=== PATIENT | female | born 1975 | race Caucasian/White ===

== ENCOUNTER 2017-06-06 09:24 | Inpatient (IN) | payer OTHER ==
[2017-06-06] MEDS ORDERED: LIDOCAINE 1%/EPI 30 ML INJ (11:09)
[2017-06-06] MEDS ORDERED: SURGIFOAM POWDER 1 GM KIT (11:09)
[2017-06-06] MEDS ORDERED: HEPARIN 1000 UNITS/ML 10 ML INJ (11:10)
[2017-06-06] MEDS ORDERED: CA CHLORIDE 10% 10 ML SYRINGE (11:11)
[2017-06-06] MEDS ORDERED: AL HYDROX/MG HYDROX/SIMETH 30 ML CUP PO (11:30)
[2017-06-06] MEDS ORDERED: LORAZEPAM 2 MG INJ IV (11:30)
[2017-06-06] MEDS ORDERED: ACETAMINOPHEN 325 MG TAB PO (11:30)
[2017-06-06] MEDS ORDERED: clonAZEPAM 0.5 MG TAB PO (11:30)
[2017-06-06] MEDS ORDERED: NALOXONE (0.4 MG/ML) INJ IV (11:30)
[2017-06-06] MEDS ORDERED: DIPHENHYDRAMINE 50 MG INJ IV ×2 (11:30→15:30)
[2017-06-06] MEDS ORDERED: ROCURONIUM 50 MG INJ (11:34)
[2017-06-06] MEDS ORDERED: SUCCINYLCHOLINE CHLORIDE 100 MG/5 ML SYG IV (11:34)
[2017-06-06] MEDS ORDERED: MEPERIDINE 100 MG INJ (11:34)
[2017-06-06] MEDS ORDERED: GLYCOPYRROLATE 0.4 MG INJ ×2 (11:34→14:58)
[2017-06-06] MEDS ORDERED: LIDOCAINE 2% (SDV) 5 ML INJ (11:34)
[2017-06-06] MEDS ORDERED: NEOSTIGMINE 3 MG/3 ML SYRINGE (11:34)
[2017-06-06] MEDS ORDERED: PROPOFOL 20 ML (11:34)
[2017-06-06 12:04] LABS: ADD MAN DIFF? NO
[2017-06-06 12:19] LABS: WHITE BLOOD COUNT 5.5 10^3/ul (4.8-10.8)
[2017-06-06 12:19] LABS: BASOPHILS % 0.2 % (0.0-2.0); EOSINOPHILS # 0.1 10^3/ul (0.0-0.5); EOSINOPHILS % 1.6 % (0.0-7.0); HEMATOCRIT 39.4 % (37.0-47.0); HEMOGLOBIN 13.9 g/dl (12.0-16.0); LYMPHOCYTES # 2.2 10^3/ul (0.8-2.9); LYMPHOCYTES % 39.4 % (15.0-51.0); MEAN CORPUSCULAR HEMOGLOBIN 33.2 pg (29.0-33.0); MEAN CORPUSCULAR HGB CONC 35.3 g/dl (32.0-37.0); MEAN PLATELET VOLUME 10.1 fl (7.4-10.4); MONOCYTE # 0.4 10^3/ul (0.3-0.9); MONOCYTES % 6.4 % (0.0-11.0); NEUTROPHIL # 2.9 10^3/ul (1.6-7.5); NEUTROPHILS % 52.2 % (39.0-77.0); PLATELET COUNT 204 10^3/UL (140-415); RED BLOOD COUNT 4.19 10^6/ul (4.20-5.40); RED CELL DISTRIBUTION WIDTH 12.3 % (11.5-14.5)
[2017-06-06 12:27] LABS: ANION GAP 18 (8-16); CARBON DIOXIDE 26 mmol/L (21-31); CHLORIDE 105 mmol/L (97-110); GLUCOSE 93 mg/dl (70-220)
[2017-06-06] MEDS: CEFAZOLIN 1 GM/50 ML (PMX) 50 ML IVPB ×2 (12:30→21:50)
[2017-06-06 12:35] LABS: BLOOD UREA NITROGEN 12 mg/dl (7-20); CALCIUM 9.9 mg/dl (8.4-10.2); POTASSIUM 4.4 mmol/L (3.5-5.1); SODIUM 145 mmol/L (135-144)
[2017-06-06] MEDS ORDERED: CEFAZOLIN 1 GM INJ ×3 (13:16→14:46)
[2017-06-06] MEDS ORDERED: EPHEDrine SULFATE 50 MG/5 ML SYG (13:16)
[2017-06-06] MEDS: CEFAZOLIN 1 GM INJ ×2 (13:24→14:52)
[2017-06-06] MEDS: GELATIN SIZE 100 SPONGE (13:25)
[2017-06-06] MEDS: THROMBIN 5000 UNIT VIAL (13:25)
[2017-06-06] MEDS: PANTOPRAZOLE (EC) 40 MG TAB PO (14:00)
[2017-06-06] MEDS ORDERED: GELATIN SIZE 100 SPONGE (14:48)
[2017-06-06] MEDS ORDERED: THROMBIN 5000 UNIT VIAL (14:50)
[2017-06-06] MEDS ORDERED: FENTAnyl 50 MCG/ML VIAL IV ×3 (15:30)
[2017-06-06] MEDS ORDERED: METOCLOPRAMIDE 10 MG INJ IV (15:30)
[2017-06-06] MEDS ORDERED: OXYCODONE/ACETAMINOPHEN (5/325) TAB PO ×2 (15:30)
[2017-06-06] MEDS ORDERED: LABETALOL HCL 20MG INJ IV (15:30)
[2017-06-06] MEDS ORDERED: HYDROmorphONE (0.2 MG/ML) 10ML SYG IV ×3 (15:30)
[2017-06-06] MEDS ORDERED: ONDANSETRON 4 MG INJ IV (15:30)
[2017-06-06] MEDS ORDERED: MIDAZOLAM 1 MG/ML 2 ML INJ IV (15:30)
[2017-06-06] MEDS ORDERED: MEPERIDINE 25 MG INJ IV (15:30)
[2017-06-06] MEDS ORDERED: EPHEDrine SULFATE 50 MG/5 ML SYG IV (15:30)
[2017-06-06] MEDS ORDERED: hydrALAzine 20 MG INJ IV (15:30)
[2017-06-06] MEDS: HYDROmorphONE (0.2 MG/ML) 10ML SYG IV ×3 (15:34→16:22)
[2017-06-06] MEDS: ONDANSETRON 4 MG INJ IV (17:16)
[2017-06-06] MEDS: SOD CHLORIDE 0.45% 1,000 ML IV (17:45)
[2017-06-06] MEDS: HYDROmorphONE 0.5 MG/0.5 ML SYG IV (18:02)
[2017-06-06] MEDS: HYDROCODONE/APAP (5/325) TAB PO (20:16)
[2017-06-06] MEDS: DOCUSATE SODIUM 100 MG CAP PO (21:00)
[2017-06-06] MEDS: PROCHLORPERAZINE 10 MG INJ IV (21:56)
[2017-06-07] MEDS: CYCLOBENZAPRINE 10 MG TAB PO ×2 (02:21→13:19)
[2017-06-07] MEDS: CEFAZOLIN 1 GM/50 ML (PMX) 50 ML IVPB ×2 (05:32→13:34)
[2017-06-07] MEDS: PANTOPRAZOLE (EC) 40 MG TAB PO (05:32)
[2017-06-07 05:39] LABS: ADD MAN DIFF? NO
[2017-06-07 05:41] LABS: WHITE BLOOD COUNT 12.6 10^3/ul (4.8-10.8)
[2017-06-07 05:41] LABS: BASOPHILS % 0.1 % (0.0-2.0); HEMATOCRIT 30.8 % (37.0-47.0); HEMOGLOBIN 10.7 g/dl (12.0-16.0); LYMPHOCYTES # 0.9 10^3/ul (0.8-2.9); LYMPHOCYTES % 7.3 % (15.0-51.0); MEAN CORPUSCULAR HEMOGLOBIN 33.2 pg (29.0-33.0); MEAN CORPUSCULAR HGB CONC 34.7 g/dl (32.0-37.0); MEAN CORPUSCULAR VOLUME 95.7 fl (82.0-101.0); MEAN PLATELET VOLUME 10.2 fl (7.4-10.4); MONOCYTE # 0.8 10^3/ul (0.3-0.9); MONOCYTES % 6.1 % (0.0-11.0); NEUTROPHIL # 10.8 10^3/ul (1.6-7.5); NEUTROPHILS % 86.1 % (39.0-77.0); PLATELET COUNT 202 10^3/UL (140-415); RED BLOOD COUNT 3.22 10^6/ul (4.20-5.40); RED CELL DISTRIBUTION WIDTH 12.4 % (11.5-14.5)
[2017-06-07 05:53] LABS: HEMOGLOBIN A1C 5.6 % (0-5.9)
[2017-06-07 05:59] LABS: MAGNESIUM 1.6 mg/dl (1.7-2.5)
[2017-06-07 05:59] LABS: PHOSPHORUS 4.2 mg/dl (2.5-4.9)
[2017-06-07 06:05] LABS: ANION GAP 17 (8-16); BLOOD UREA NITROGEN 9 mg/dl (7-20); CALCIUM 8.6 mg/dl (8.4-10.2); CARBON DIOXIDE 23 mmol/L (21-31); CHLORIDE 103 mmol/L (97-110); CREATININE 0.61 mg/dl (0.44-1.00); GLUCOSE 155 mg/dl (70-220); POTASSIUM 4.5 mmol/L (3.5-5.1); SODIUM 138 mmol/L (135-144)
[2017-06-07] MEDS: SOD CHLORIDE 0.45% 1,000 ML IV (08:03)
[2017-06-07] MEDS: ESCITALOPRAM 10 MG TAB PO (09:08)
[2017-06-07] MEDS: DOCUSATE SODIUM 100 MG CAP PO ×2 (09:09→20:41)
[2017-06-07] MEDS: BUSPIRONE 10 MG TAB PO (09:09)
[2017-06-07] MEDS: HYDROCODONE/APAP (5/325) TAB PO ×3 (11:52→20:41)
[2017-06-07] MEDS: MAGNESIUM OXIDE 400 MG TAB PO ×2 (11:57→20:41)
[2017-06-07] MEDS: LORAZEPAM 1 MG TAB PO (16:10)
[2017-06-08 05:25] LABS: ADD MAN DIFF? NO
[2017-06-08 05:32] LABS: WHITE BLOOD COUNT 9.7 10^3/ul (4.8-10.8)
[2017-06-08 05:32] LABS: BASOPHILS % 0.1 % (0.0-2.0); EOSINOPHILS % 0.3 % (0.0-7.0); HEMATOCRIT 24.4 % (37.0-47.0); HEMOGLOBIN 8.3 g/dl (12.0-16.0); LYMPHOCYTES # 1.6 10^3/ul (0.8-2.9); LYMPHOCYTES % 16.9 % (15.0-51.0); MEAN CORPUSCULAR HEMOGLOBIN 32.9 pg (29.0-33.0); MEAN CORPUSCULAR VOLUME 96.8 fl (82.0-101.0); MEAN PLATELET VOLUME 10.1 fl (7.4-10.4); MONOCYTE # 0.7 10^3/ul (0.3-0.9); NEUTROPHIL # 7.3 10^3/ul (1.6-7.5); NEUTROPHILS % 75.4 % (39.0-77.0); PLATELET COUNT 137 10^3/UL (140-415); RED BLOOD COUNT 2.52 10^6/ul (4.20-5.40); RED CELL DISTRIBUTION WIDTH 12.8 % (11.5-14.5)
[2017-06-08 05:55] LABS: ANION GAP 13 (8-16); BLOOD UREA NITROGEN 9 mg/dl (7-20); CALCIUM 8.5 mg/dl (8.4-10.2); CARBON DIOXIDE 28 mmol/L (21-31); CHLORIDE 104 mmol/L (97-110); CREATININE 0.58 mg/dl (0.44-1.00); GLUCOSE 128 mg/dl (70-220); MAGNESIUM 2.2 mg/dl (1.7-2.5); POTASSIUM 3.7 mmol/L (3.5-5.1); SODIUM 141 mmol/L (135-144)
[2017-06-08] MEDS: PANTOPRAZOLE (EC) 40 MG TAB PO (06:11)
[2017-06-08] MEDS: ESCITALOPRAM 10 MG TAB PO (09:09)
[2017-06-08] MEDS: MAGNESIUM OXIDE 400 MG TAB PO ×2 (09:09→20:15)
[2017-06-08] MEDS: DOCUSATE SODIUM 100 MG CAP PO ×2 (09:09→20:15)
[2017-06-08] MEDS: BUSPIRONE 10 MG TAB PO (09:10)
[2017-06-08] MEDS: HYDROCODONE/APAP (5/325) TAB PO ×4 (09:13→20:19)
[2017-06-08] MEDS: CYCLOBENZAPRINE 10 MG TAB PO (20:15)
[2017-06-09] MEDS: HYDROCODONE/APAP (5/325) TAB PO ×4 (00:39→12:24)
[2017-06-09 05:08] LABS: ADD MAN DIFF? NO
[2017-06-09 05:16] LABS: BASOPHILS % 0.2 % (0.0-2.0); EOSINOPHILS # 0.1 10^3/ul (0.0-0.5); EOSINOPHILS % 1.1 % (0.0-7.0); HEMATOCRIT 24.5 % (37.0-47.0); HEMOGLOBIN 8.4 g/dl (12.0-16.0); LYMPHOCYTES % 23.9 % (15.0-51.0); MEAN CORPUSCULAR HEMOGLOBIN 33.1 pg (29.0-33.0); MEAN CORPUSCULAR HGB CONC 34.3 g/dl (32.0-37.0); MEAN CORPUSCULAR VOLUME 96.5 fl (82.0-101.0); MEAN PLATELET VOLUME 9.9 fl (7.4-10.4); MONOCYTE # 0.5 10^3/ul (0.3-0.9); MONOCYTES % 6.1 % (0.0-11.0); NEUTROPHIL # 5.8 10^3/ul (1.6-7.5); NEUTROPHILS % 68.3 % (39.0-77.0); PLATELET COUNT 159 10^3/UL (140-415); RED BLOOD COUNT 2.54 10^6/ul (4.20-5.40); RED CELL DISTRIBUTION WIDTH 12.6 % (11.5-14.5)
[2017-06-09 05:16] LABS: WHITE BLOOD COUNT 8.5 10^3/ul (4.8-10.8)
[2017-06-09] MEDS: PANTOPRAZOLE (EC) 40 MG TAB PO (05:24)
[2017-06-09] MEDS: DOCUSATE SODIUM 100 MG CAP PO (08:42)
[2017-06-09] MEDS: ESCITALOPRAM 10 MG TAB PO (08:42)
[2017-06-09] MEDS: MAGNESIUM OXIDE 400 MG TAB PO (08:43)
[2017-06-09] MEDS: BUSPIRONE 10 MG TAB PO (08:43)
== END 2017-06-09 12:56 | disposition home or self-care (01) | DRG 518 ==
LOC: REC 09:24 → MS1 16:44
PROC: 0SR40JZ Replacement of Lumbosacral Disc with Synthetic Substitute, Open Approach (ICD-10-PCS; principal; 2017-06-06 11:30)
PROC: 0ST40ZZ Resection of Lumbosacral Disc, Open Approach (ICD-10-PCS; 2017-06-06 11:30)
DX: M51.37 Other intervertebral disc degeneration, lumbosacral region (principal); E87.0 Hyperosmolality and hypernatremia; D62 Acute posthemorrhagic anemia; F41.9 Anxiety disorder, unspecified; F32.9 Major depressive disorder, single episode, unspecified; E83.42 Hypomagnesemia
CPT/HCPCS: 72100; 72110; 72170; 74018; 80048; 83036; 83735; 84100; 85025; 86850; 86900; 86901; 86920; 86999; 87086; 97110; 97116; 97161; 97165; 97530

== ENCOUNTER 2017-11-03 12:07 | Emergency (ER) | payer SELFPAY, OTHER | END 2017-11-03 12:13 | disposition left against medical advice (07) | LOC: E/R 12:13 → FTE 12:07 | DX: Z53.21 Procedure and treatment not carried out due to patient leaving prior to being seen by health care provider (principal) ==